=== PATIENT | female | born 1985 | race Caucasian/White ===

== ENCOUNTER 2018-06-26 22:45 | Emergency (ER) | payer SELFPAY ==
[2018-06-26] MEDS ORDERED: NA CHLORIDE 0.9% 1,000 ML ONE (23:32)
[2018-06-26 23:48] LABS: Absolute Lymphocytes (CBC) 1.2 K/uL (0.7-4.9); Absolute Monocytes 0.5 K/uL (0.1-1.3); Absolute Neutrophil 7.1 K/uL (1.8-8.0); Basophils % 0.6 % (0-1.3); Eosinophils % 1.5 % (0-4.4); Hematocrit 31.2 % (36.0-45.0); Lymphocytes % 13.3 % (15.3-44.8); MCH 35.4 pg (27.0-35.0); MCV 96.5 fL (80-100); MPV 8.3 fL (7.6-11.3); Monocytes % 5.9 % (3.3-12.3); RBC Red Blood Cell Count 3.23 M/uL (3.86-4.86)
[2018-06-27 00:01] LABS: Potassium 3.8 mmol/L (3.5-5.1)
[2018-06-27 00:27] LABS: Urine Blood TRACE (NEG); Urine Glucose NEGATIVE (NEG); Urine Protein NEGATIVE (NEG)
--- NOTE | 2018-06-27 02:15 | EDPHYS ---
Physician Documentation [facility] Name: Gabby Moyer Age: 32 yrs Sex: Female : 1985 Arrival Date: 06/26/2018 Time: 22:48 Bed 7 Private MD: ED Physician Isidro Kent HPI: 06/26 23:35 This 32 yrs old Female presents to ER via Ambulatory with complaints of Post pkl Surgical Pain - Surgical Site Problem. 23:35 Patient had a tummy tuck surgery in [facility] ) 06/17/18. Day after surgery pkl patient said her skin around the incision wound in the lower abdomen started to turn black. Denies abdominal pain. Wants to know what is going on.. 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 - Social history:: Smoking status: Patient uses tobacco products, smokes one-half pack cigarettes per day. - Ebola Screening: : Patient negative for fever greater than or equal to 101.5 degrees Fahrenheit, and additional compatible Ebola Virus Disease symptoms. ROS: 23:35 Eyes: Negative for injury, pain, redness, and discharge, ENT: Negative for injury, pkl pain, and discharge, Neck: Negative for injury, pain, and swelling, Cardiovascular: Negative for chest pain, palpitations, and edema, Respiratory: Negative for shortness of breath, cough, wheezing, and pleuritic chest pain. 23:35 Abdomen/GI: Positive for ecchymosis around incision wound lower abdomen.. 23:35 Back: Negative for acute changes. 23:35 : Negative for urinary symptoms. 23:35 MS/extremity: Negative for acute changes. 23:35 Neuro: Negative for altered mental status. Exam: 23:35 Head/Face: Normocephalic, atraumatic. Eyes: Pupils equal round and reactive to light, pkl extra-ocular motions intact. Lids and lashes normal. Conjunctiva and sclera are non-icteric and not injected. Cornea within normal limits. Periorbital areas with no swelling, redness, or edema. ENT: Nares patent. No nasal discharge, no septal abnormalities noted. Tympanic membranes are normal and external auditory canals are clear. Oropharynx with no redness, swelling, or masses, exudates, or evidence of obstruction, uvula midline. Mucous membranes moist. Neck: Trachea midline, no thyromegaly or masses palpated, and no cervical lymphadenopathy. Supple, full range of motion without nuchal rigidity, or vertebral point tenderness. No Meningismus. Chest/axilla: Normal chest wall appearance and motion. Nontender with no deformity. No lesions are appreciated. Cardiovascular: Regular rate and rhythm with a normal S1 and S2. No gallops, murmurs, or rubs. Normal PMI, no JVD. No pulse deficits. Respiratory: Lungs have equal breath sounds bilaterally, clear to auscultation and percussion. No rales, rhonchi or wheezes noted. No increased work of breathing, no retractions or nasal flaring. 23:35 Abdomen/GI: Bowel sounds: normal, Palpation: abdomen is soft and non-tender, in all quadrants, ecchymosis around incision wound lower abdomen. 23:35 Back: Exam negative for acute changes. 23:35 : Exam negative for acute changes. 23:35 Musculoskeletal/extremity: Exam is negative for acute changes. 23:35 Neuro: Orientation: is normal, Mentation: is normal, Cranial nerves: grossly normal, Motor: is normal. Vital Signs: 23:23 BP 109 / 63; Pulse 88; Resp 16 S; Temp 98.4(O); Pulse Ox 97% on R/A; Weight 73.94 kg jd3 (R); Height 5 ft. 3 in. (160.02 cm) (R); Pain 0/10; 06/27 00:21 BP 96 / 70; Pulse 86; Resp 16 S; Pulse Ox 98% on R/A; jd3 01:31 BP 100 / 71; Pulse 78; Resp 16 S; Pulse Ox 98% on R/A; jd3 06/26 23:23 Body Mass Index 28.87 (73.94 kg, 160.02 cm) jd3 MDM: 06/26 23:01 Patient medically screened. pkl 06/27 02:10 Data reviewed: vital signs, nurses notes, lab test result(s), radiologic studies, CT pkl scan. ED course: Discussed lab. and CT Scan results with patient. Advised to see Surgeon that perform the surgery today. Patient understood instructions. 06/26 23:18 Order name: CBC with Diff; Complete Time: 00:08 pkl 06/26 23:18 Order name: Chem 7; Complete Time: 00:08 pkl 06/26 23:18 Order name: Sed Rate; Complete Time: 00:08 pkl 06/26 23:42 Order name: Urine Dipstick--Ancillary (enter results); Complete Time: 02:06 rg2 06/26 23:42 Order name: Urine --Ancillary (enter results); Complete Time: 02:06 rg2 06/27 01:34 Order name: Wound Culture jd3 06/27 00:09 Order name: CT Abd/Pelvis - W/Contrast pkl Administered Medications: 06/26 23:45 Drug: NS 0.9% 1000 ml Route: IV; Rate: 125 ml/hr; Site: right antecubital; tl1 06/27 02:24 Follow up: Response: No adverse reaction; IV Status: Order to discontinue infusion; IV jd3 Intake: 300ml Disposition: 06/27/18 02:15 Discharged to Home. Impression: Ecchymosis around incision wound lower abdomen. Possible skin necrosis. S/P Tummy Tuck. - Condition is Stable. - Medication Reconciliation Form, Thank You Letter, Antibiotic Education, Prescription Opioid Use form. - Follow up: Private Physician; When: Today; Reason: Re-evaluation by your physician. - Problem is new. - Symptoms are unchanged. Signatures: Dispatcher [employer] EDMS Isidro Kent MD MD pkl Chayo Alexander RN RN tl1 Tomasz Mendez RN RN jd3 Corrections: (The following items were deleted from the chart) 02:24 02:15 06/27/2018 02:15 Discharged to Home. Impression: Ecchymosis around incision wound jd3 lower abdomen. Possible skin necrosis. S/P Tummy Tuck. Condition is Stable. Forms are Medication Reconciliation Form, Thank You Letter, Antibiotic Education, Prescription Opioid Use. Follow up: Private Physician; When: Today; Reason: Re-evaluation by your physician. Problem is new. Symptoms are unchanged. pkl
--- NOTE | 2018-06-27 02:15 | ER ---
Nurse's Notes [facility] Name: Gabby Moyer Age: 32 yrs Sex: Female : 1985 Arrival Date: 06/26/2018 Time: 22:48 Bed 7 Private MD: Diagnosis: Ecchymosis around incision wound lower abdomen. Possible skin necrosis. S/P Tummy Tuck Presentation: 06/26 23:19 Presenting complaint: Patient states: "I had a tummy tuck in [place] 06-17-18. The day jd3 after the procedure my skin started to turn black around the sight of the surgery.". Transition of care: patient was not received from another setting of care. Onset of symptoms was June 18, 2018. Risk Assessment: Do you want to hurt yourself or someone else? Patient reports no desire to harm self or others. Initial Sepsis Screen: Does the patient meet any 2 criteria? No. Patient's initial sepsis screen is negative. Does the patient have a suspected source of infection? Yes: Skin breakdown/wound. Care prior to arrival: None. 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 - Social history:: Smoking status: Patient uses tobacco products, smokes one-half pack cigarettes per day. - Ebola Screening: : Patient negative for fever greater than or equal to 101.5 degrees Fahrenheit, and additional compatible Ebola Virus Disease symptoms. Screenin:29 Abuse screen: Denies threats or abuse. Nutritional screening: No deficits noted. jd3 Tuberculosis screening: No symptoms or risk factors identified. Fall Risk IV access (20 points). Ambulatory Aid- None/Bed Rest/Nurse Assist (0 pts). Gait- Normal/Bed Rest/Wheelchair (0 pts) Mental Status- Oriented to own ability (0 pts). Total Miranda Fall Scale indicates No Risk (0-24 pts). Assessment: 23:24 General: Appears in no apparent distress. comfortable, Behavior is calm, cooperative, jd3 appropriate for age. Pain: Denies pain. Neuro: Level of Consciousness is awake, alert, obeys commands, Oriented to person, place, time, situation, Appropriate for age. Cardiovascular: Capillary refill < 3 seconds Patient's skin is warm and dry. Respiratory: Airway is patent Respiratory effort is even, unlabored, Respiratory pattern is regular, symmetrical. GI: Abdomen is round non-distended, Bowel sounds present X 4 quads. Abd is soft and non tender X 4 quads. Patient currently denies constipation, diarrhea. : No signs and/or symptoms were reported regarding the genitourinary system. EENT: No signs and/or symptoms were reported regarding the EENT system. Derm: Skin is intact, Skin is dry, Skin is normal, Skin temperature is warm Wound noted Wound is surgical wound to bottom of abdomen from recent tummy tuck surgery. site is dark purple/black in color. no redness or swelling noted. Musculoskeletal: Circulation, motion, and sensation intact. Range of motion: intact in all extremities. 06/27 00:22 Reassessment: Patient appears in no apparent distress at this time. No changes from jd3 previously documented assessment. Patient and/or family updated on plan of care and expected duration. Pain level reassessed. Patient is alert, oriented x 3, equal unlabored respirations, skin warm/dry/pink. 01:33 Reassessment: Patient appears in no apparent distress at this time. Patient and/or jd3 family updated on plan of care and expected duration. Pain level reassessed. Patient is alert, oriented x 3, equal unlabored respirations, skin warm/dry/pink. 02:22 Reassessment: Patient appears in no apparent distress at this time. Patient and/or jd3 family updated on plan of care and expected duration. Pain level reassessed. Patient is alert, oriented x 3, equal unlabored respirations, skin warm/dry/pink. pt reported understanding of discharge instructions, even and steady gait upon discharge. Vital Signs: 06/26 23:23 BP 109 / 63; Pulse 88; Resp 16 S; Temp 98.4(O); Pulse Ox 97% on R/A; Weight 73.94 kg jd3 (R); Height 5 ft. 3 in. (160.02 cm) (R); Pain 0/10; 06/27 00:21 BP 96 / 70; Pulse 86; Resp 16 S; Pulse Ox 98% on R/A; jd3 01:31 BP 100 / 71; Pulse 78; Resp 16 S; Pulse Ox 98% on R/A; jd3 06/26 23:23 Body Mass Index 28.87 (73.94 kg, 160.02 cm) jd3 ED Course: 06/26 22:48 Patient arrived in ED. ds1 23:01 Isidro Kent MD is Attending Physician. pkl 23:19 Tomasz Mendez RN is Primary Nurse. jd3 23:22 Triage completed. jd3 23:24 Arm band placed on. jd3 23:29 Patient has correct armband on for positive identification. Placed in gown. Bed in low jd3 position. Call light in reach. Side rails up X 1. Adult w/ patient. 23:35 Inserted saline lock: 20 gauge in right antecubital area, using aseptic technique. cc Blood collected. 23:39 Initial lab(s) drawn, by me, sent to lab. cc 06/27 00:[address] via wheelchair. kw1 01:03 CT Abd/Pelvis - W/Contrast In Process Unspecified. EDMS 01:05 CT completed. Patient tolerated procedure well. Patient moved back from CT. kw1 02:21 No provider procedures requiring assistance completed. IV discontinued, intact, jd3 bleeding controlled, No redness/swelling at site. Pressure dressing applied. Administered Medications: 06/26 23:45 Drug: NS 0.9% 1000 ml Route: IV; Rate: 125 ml/hr; Site: right antecubital; tl1 08 02:24 Follow up: Response: No adverse reaction; IV Status: Order to discontinue infusion; IV jd3 Intake: 300ml Intake: 02:24 IV: 300ml; Total: 300ml. jd3 Outcome: 02:15 Discharge ordered by . pkl 02:22 Discharged to home ambulatory, with family. jd3 02:22 Condition: stable 02:22 Discharge instructions given to patient, Instructed on discharge instructions, follow up and referral plans. Demonstrated understanding of instructions, follow-up care. 02:24 Patient left the ED. jd3 Signatures: Dispatcher [employer] EDMS Isidro Kent MD MD pkl Sanford, Nayana ds1 Emily Nicholson Tonya RN RN tl1 Tomasz Mendez RN RN jd3 Isis Villavicencio kw1
--- NOTE | 2018-06-27 08:23 | RAD REPORT ---
EXAM DESCRIPTION: CTAbdomen Pelvis W Contrast - 06/27/2018 1:02 am CLINICAL HISTORY: Abdominal pain. ecchymosis lower abd. S/P tummy tuck COMPARISON: No comparisons TECHNIQUE: Biphasic CT imaging of the abdomen and pelvis was performed with 100 ml non-ionic IV cont rast. All CT scans are performed using dose optimization technique as appropriate and may include automated exposure control or mA/KV adjustment according to patient size. FINDINGS: The lung bases are clear.Small hiatal hernia. The liver, spleen, pancreas, adrenal glands and left kidney are within normal limits. Mild enhancemen t of the right-sided uroepithelium seen. No bowel obstruction, free air, free fluid or abscess. Moderate fat stranding and air bubbles are see n in the subcutaneous fat of the abdomen. Surgical drain is in place. No focal fluid collection is se en. The appendix is normal. No evidence of significant lymphadenopathy. No suspicious bony findings. IMPRESSION: Moderate subcutaneous fat stranding with small air bubbles and a drain in place in the l ower anterior abdominal wall fat. No abscess seen. Mild enhancement right-sided uro epithelium could indicate urinary tract infection. Clinical correlat ion is recommended.
== END 2018-06-27 02:24 | disposition home or self-care (01) ==
LOC: ER 22:45
DX: R58 Hemorrhage, not elsewhere classified (principal); G89.18 Other acute postprocedural pain; F17.220 Nicotine dependence, chewing tobacco, uncomplicated
CPT/HCPCS: 36415; 74177; 80048; 81003; 81025; 85025; 85652; 87070; 87205; 96360; 96361; 99284; J7030; Q9967

== ENCOUNTER 2022-01-30 13:08 | Inpatient (IN) | payer SELFPAY ==
--- OUTSIDE RECORDS SUMMARY | 2022-01-30 13:11 | XMS REPORT | Continuity of Care Document ---
:1985 Author Organization [facility] t Address [address] [place] [place] [address] Care Team Providers Name Role Phone Pcp, Does Not Have A Primary Care Physician Nikki VINCENT Attending Clinician Unavailable Nikki Hussein Attending Clinician ANENE Attending Clinician Unavailable Payers Payer Name Policy Type Policy Number Effective Date Expiration Date S [facility] [id number] 2015 00:00:00 Problems Condition Condition Condition Status Onset Resolution Last Treating Co mments Source Name Details Category Date Date Treatment Clinician Date No known No known Disease Unive rs active active ity of problems problems [facility] Allergies, Adverse Reactions, Alerts Allergy Allergy Status Severity Reaction(s) Onset Inactive Treating Comm ents Source Name Type Date Date Clinician NO KNOWN Drug Active Univers ALLERGIE Class ity of S [facility] Social History Social Habit Start Date Stop Date Quantity Comments Source Exposure to Not sure [facility] SARS-CoV-2 (event) Medica l Branch Sex Assigned At [birth year] [facility] 00:00:00 00:00:00 [facility] Smoking Status Start Date Stop Date Source Unknown if ever smoked [facility] Medications Ordered Filled Start Stop Current Ordering Indication Dosage Frequency Signature Comments Components Source Medication Medication Date Date Medication? Clinician (SIG) Name Name ondansetron 2021- No 4mg 4 mg, Slow Univers (ZOFRAN 3-11 -11 IV Push, ity of (PF)) 09:00: 07:59 ONCE, 1 [place] injection 4 00 :00 dose, On Medi angelic mg Fri Branch 01/30/22 at 0300, SHANTANU NaCl 0.9% 0 202- No 1000mL at 999 Uni vers (NS) bolus 01-30 mL/hr, ity of infusion 07:45: 09:00 1,000 mL, [place] as 1,000 mL 00 :00 IV Medical Infusion, Branch ONCE, 1 dose, On Wed01/30/22 at 0145, SHANTANU proMETHazin 2021-0 2021- No 25mg 25 mg, Uni vers e 01-30 Oral, ity of (PHENERGAN) 07:30: 06:21 [place] 25 [place] :00 dose, On Medica l mg Fri Branch 01/30/22 at 0130, SHANTANU proMETHazin 2021-0 2021- No 25mg 25 mg, IV Univers e 01-30 Piggyback, ity of (PHENERGAN) 07:00: 05:50 [place] in 00 :00 dose, On Medical NaCl 0.9% Fri Branch (NS) 50 mL 01/30/22 at IV 0100, SHANTANU piggyback ondansetron 2021-0 2021- No 8mg 8 mg, Slow Univers (ZOFRAN 01-30 IV Push, ity of (PF)) 06:00: 05:30 ONCE, 1 [place] injection 8 00 :00 dose, On Medi angelic mg Fri Branch 01/30/22 at 0000, SHANTANU NaCl 0.9% 0 202- No 1000mL at 999 Uni vers (NS) bolus 01-30 mL/hr, ity of infusion 06:00: 07:45 1,000 mL, [place] as 1,000 mL 00 :00 IV Medical Infusion, Branch ONCE, 1 dose, On 01/30/22 at 0000, SHANTANU proMETHazin 2022-0 Yes [id number] 25mg Take 1 Univers e 25 mg 3-11 tablet by ity of tablet 00:00: mouth [place] 00 every 6 Medical (six) Branch hours as needed for Nausea and Vomiting (N/V). proMETHazin 2022-0 Yes [id number] 25mg Insert 1 Univers e 25 mg 3-11 Suppositor [place]y of supp[place] 00:00[place] rectum Medical every 4 Branch (four) hours as needed for Nausea and Vomiting (N/V). dicyclomine Yes [id number] 10mg Take 1 Univers 10 mg 3-11 capsule by ity of capsule 00:00: mouth 4 [place] (four) Medical times Branch daily. Vital Signs Vital Name Observation Time Observation Value Comments Source Respiratory rate 2022-01-30 08:30:00 22 /min [facility] Systolic blood 2022-01-30 08:00:00 99 mm[Hg] [facility] Diastolic blood 2022-01-30 08:00:00 66 mm[Hg] [facility] Heart rate 2022-01-30 08:00:00 59 /min [facility] Oxygen saturation in 2022-01-30 06:08:00 96 /min [facility] Arterial blood by [facility] Pulse oximetry [place] Body temperature 2022-01-30 04:17:[address] [facility] Body height 2022-01-30 04:17:00 160 cm [facility] Body weight 2022-01-30 04:17:00 74.844 kg [facility] BMI 2022-01-30 04:17:00 29.23 kg/m2 [facility] Procedures Procedure Date / Time Performed Performing Clinician [facility] e POCT TEST 2022-01-30 05:43:00 Laci Vincent [facility] URINALYSIS 2022-01-30 05:41:00 Laci Vincent [facility] LIPASE 2022-01-30 05:31:00 Laci Vincent [facility] MAGNESIUM 2022-01-30 05:31:00 Laci Vincent [facility] COMP. METABOLIC PANEL 2022-01-30 05:31:00 Laci Vincent [facility] ([id number]) [facility] CBC WITH DIFF 2022-01-30 05:31:00 Laci Vincent [facility] NOTICE OF PRIVACY 2022-01-30 04:13:47 Doctor Unassigned, No [facility] PRACTICES Name [facility] CONSENT/REFUSAL FOR 2022-01-30 04:13:34 Doctor Unassigned, No Un [facility] DIAGNOSIS AND Name [facility] TREATMENT Plan of Care Planned Activity Planned Date Details Comments Source Encounters Start End Encounter Admission Attending Care Care Encounter Source Date/Time Date/Time Type Type Clinicians Facility Department ID 2018-07-14 Inpatient E [facility] [id number] 19:40:00 dakota duncan 2022-01-29 2022-01-30 Emergency X [facility] ERT [id number] Univers 22:26:00 03:03:[address] [facility] 2022-01-29 2022-01-30 Emergency [facility] [id number] Univers 22:26:00 03:03:00 Laci FRIEND [id number] i [facility] [id number] [facility] [id number] [place] [id number] Branch 2020-05-31 2020-05-31 [id number] Univers 07:00:00 07:00:[address] [facility] 2018-06-27 2018-06-27 [facility] [id number] 16:57:00 16:57:00 dakota duncan Results Test Description Test Time Test Comments Results Result Comments Source MAGNESIUM 2022-01-30 06:35:59 Test Item Value Reference Range Interpretation Comme nts MAGNESIUM (test code = 1939021137) 1.6 mg/dL 1.7-2.4 L Lab Interpretation (test code = 14530-9) [facility]20713[facility]2022-01-30 06:35:58 Test Item Value Reference Range Interpretation Comments NA (test code = 139 mmol/L 135-145 4960131202) K (test code = 3.8 mmol/L 3.5-5.0 4035072729) CL (test code = 103 mmol/L 98-108 0020554916) CO2 TOTAL (test code = 21 mmol/L 23-31 L 1469488715) AGAP (test code = 2-16 8796293398) BUN (test code = 10 mg/dL 7-23 2386705347) GLUCOSE (test code = 116 mg/dL 70-110 H 0064677586) CREATININE (test code = 0.78 mg/dL 0.50-1.04 0042374098) TOTAL BILI (test code = 1.4 mg/dL 0.1-1.1 H 2668093330) CALCIUM (test code = 9.2 mg/dL 8.6-10.6 4026013178) T PROTEIN (test code = 8.7 g/dL 6.3-8.2 H 8148581297) ALBUMIN (test code = 5.1 g/dL 3.5-5.0 H 3373088181) ALK PHOS (test code = 70 U/L 34-122 6675675728) ALTv (test code = 36 U/L 5-35 H 2-6) AST(SGOT) (test code = 52 U/L 13-40 H 5408952912) eGFR (test code = mL/min/1.73m2 4029694726) MARY (test code = MARY) Association of Glomerular Filtration Rate (GFR) and Staging of Kidney Disease* + --+ --+ ------+| GFR (mL/min/1.73 m2) ?| With Kidney Damage ?| ?Without Kidney Damage+ --------+ --------+ +| ?>90 ?| ?Stage one ?| ? Normal ?+ ---+ ---+ -------+| ?60-89 ?| ?Stage two ?| ? Decreased GFR ? + --+ --+ ------+| ?30-59 ?| ?Stage three ?| ? Stage three ? + --+ --+ ------+| ?15-29 ?| ?Stage four ? | ? Stage four ?+ ---+ ---+ -------+| ?<15 (or dialysis) ? ?| ?Stage five ? | ? Stage five ?+ ---+ ---+ -------+ *Each stage assumes the associated GFR level has been in effect for at least three months. ?Stages 1 to 5, with or without kidney disease, indicate chronic kidney disease. Notes: Determination of stages one and two (with eGFR >59mL/min/1.73 m2) requires estimation of kidney damage for at least three months as defined by structural or functional abnormalities of the kidney, manifested by either:Pathological abnormalities or Markers of kidney damage (including abnormalities in the composition of the blood or urine or abnormalities in imaging tests). Lab Interpretation Abnormal (test code = 91815-9) [facility] 06:35:38 Test Item Value Reference Range Interpretation Comments LIPASE (test code = 2890696250) 118 U/L 0-220 Lab Interpretation (test code = Normal 95148-2) [facility] WITH [id number] 06:17:38 Test Item Value Reference Range Interpretation Comments WBC (test code = See_Comment [Automated 6690-2) message] The sy stem which generated this result transmitted reference range : 4.30 - 11.10 10*3/?L. The reference range was not used to interpret this result as normal/abnormal . RBC (test code = See_Comment [Automated 789-8) message] The sy stem which generated this result transmitted reference range : 3.93 - 5.25 10*6/?L. The reference range was not used to interpret this result as normal/abnormal . HGB (test code = 14.4 g/dL 11.6-15.0 718-7) HCT (test code = 38.8 % 35.7-45.2 4544-3) MCV (test code = 94.9 fL 80.6-95.5 787-2) MCH (test code = 35.2 pg 25.9-32.8 H 785-6) MCHC (test code = 37.1 g/dL 31.6-35.1 H 786-4) RDW-SD (test code = 39.2 fL 39.0-49.9 99944-8) RDW-CV (test code = 11.5 % 12.0-15.5 L 788-0) PLT (test code = See_Comment [Automated 777-3) message] The sy stem which generated this result transmitted reference range : 166 - 358 10*3/ ?L. The reference r milagros was not used to interpret this result as normal/abnormal . MPV (test code = 10.8 fL 9.5-12.9 12523-5) NRBC/100 WBC (test See_Comment [Automat ed code = 0609034337) message] The system which generated this result transmitted reference range : 0.0 - 10.0 /100 WBCs. The refer ence range was not u sed to interpret th is result as normal/abnormal . NRBC x10^3 (test code <0.01 See_Comment [Auto mated = 1990548626) message] The s ystem which generated this result transmitted reference range : 10*3/?L. The reference range was not used to interpret this result as normal/abnormal . GRAN MAT (NEUT) % 73.8 % (test code = 770-8) IMM GRAN % (test code 0.30 % = 5808501051) LYMPH % (test code = 18.5 % 736-9) MONO % (test code = 6.6 % 5905-5) EOS % (test code = 0.3 % 713-8) BASO % (test code = 0.5 % 706-2) GRAN MAT x10^3(ANC) 6.87 10*3/uL 1.88-7.09 (test code = 2693607803) IMM GRAN x10^3 (test 0.03 10*3/uL 0.00-0.06 code = 7399325966) LYMPH x10^3 (test code 1.73 10*3/uL 1.32-3.29 = 731-0) MONO x10^3 (test code 0.62 10*3/uL 0.33-0.92 = 742-7) EOS x10^3 (test code = 0.03 10*3/uL 0.03-0.39 711-2) BASO x10^3 (test code 0.05 10*3/uL 0.01-0.07 = 704-7) Lab Interpretation Abnormal (test code = 79187-9) [facility] [id number] 05:43:00 Test Item Value Reference Range Interpretation Comments POCT PREG (test code = 1605) Negative On board controls acceptable with Postive C Line (test code = 3574) POCT PREG LOT # (test code = 3575) [id number] POCT PREG TEST DATE (test 01-19-2023 code = 3576) Lab Interpretation (test code = Normal 70987-0) [facility]"
[2022-01-30 14:49] LABS: Absolute Lymphocytes (CBC) 0.9 K/uL (0.7-4.9); Hematocrit 39.1 % (36.0-45.0); Lymphocytes % 10.8 % (15.3-44.8); MPV 8.8 fL (7.6-11.3); RBC Red Blood Cell Count 3.93 M/uL (3.86-4.86)
[2022-01-30] MEDS ORDERED: ONDANSETRON 4 MG/2 ML VIAL ONE (14:52)
[2022-01-30] MEDS ORDERED: NA CHLORIDE 0.9% 1,000 ML ONE (14:52)
[2022-01-30] MEDS ORDERED: FAMOTIDINE 20 MG/2 ML VIAL IV ONE (14:52)
[2022-01-30 15:06] LABS: Bilirubin Direct 0.2 mg/dL (0-0.2); Bilirubin Total 0.9 mg/dL (0.2-1.0); Potassium 3.3 mmol/L (3.5-5.1); Protein, Total 8.4 g/dL (6.4-8.2)
[2022-01-30] MEDS ORDERED: NA CHLORIDE 0.9% 100 ML IV ONE (16:00)
[2022-01-30] MEDS ORDERED: METOCLOPRAMIDE 10 MG/2mL INJ ONE ×2 (16:00→16:07)
[2022-01-30] MEDS ORDERED: NA CHLORIDE 0.9% 50 ML ONE (16:05)
[2022-01-30] MEDS ORDERED: PROMETHAZINE INJ 25 MG/ML AMP ONE (18:14)
--- NOTE | 2022-01-30 18:39 | ER ---
Nurse's Notes [facility] Name: Gabby Moyer Age: 36 yrs Sex: Female : 1985 Arrival Date: 01/30/2022 Time: 13:10 Bed 26 Private MD: Diagnosis: Cyclical vomiting, intractable Presentation: 01/30 13:15 Chief complaint: Patient states: she has been experiencing nausea and vomiting since ap3 01/25/2022 which has not resolved. Patient reports being evaluated at another facility last night where she received fluids and zofran. She reports the providers at the previous facility wanted to admit her, however she didn't want to stay because she was informed they didn't have any beds available at that time. She was given a prescription for Zofran, however she reports that she is not getting any relief due to being unable to keep it down. Coronavirus screen: At this time, the client does not indicate any symptoms associated with coronavirus-19. Ebola Screen: No symptoms or risks identified at this time. Initial Sepsis Screen: Does the patient meet any 2 criteria? No. Patient's initial sepsis screen is negative. Does the patient have a suspected source of infection? No. Patient's initial sepsis screen is negative. Risk Assessment: Do you want to hurt yourself or someone else? Patient reports no desire to harm self or others. Onset of symptoms was January 25, 2022. 13:15 Method Of Arrival: Ambulatory ap3 13:15 Acuity: SAMIRA 3 ap3 Triage Assessment: 13:19 General: Appears uncomfortable, Behavior is calm, cooperative. General: Reports fatigue ap3 for. Pain: Denies pain. Neuro: Level of Consciousness is awake, alert, obeys commands. Respiratory: Airway is patent Respiratory effort is even, unlabored. GI: Reports diarrhea, intolerance of fluids, intolerance of food, nausea, vomiting. 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 - Social history:: Smoking status: Patient/guardian denies using tobacco, Patient uses alcohol, occasionally. Screenin:19 Abuse screen: Denies threats or abuse. Nutritional screening: Has had N/V for 3 or more ap3 days. Tuberculosis screening: No symptoms or risk factors identified. Fall Risk None identified. No fall in past 12 months (0 pts). Assessment: 14:20 General: Appears ill, Behavior is cooperative, appropriate for age. Neuro: No deficits ll1 noted. Cardiovascular: No deficits noted. Respiratory: No deficits noted. GI: Abdomen is flat, Reports nausea, vomiting. 15:20 Reassessment: No changes from previously documented assessment. Patient and/or family ll1 updated on plan of care and expected duration. Pain level reassessed. Patient is alert, oriented x 3, equal unlabored respirations, skin warm/dry/pink. 16:10 Reassessment: No changes from previously documented assessment. Patient and/or family ll1 updated on plan of care and expected duration. Pain level reassessed. Patient is alert, oriented x 3, equal unlabored respirations, skin warm/dry/pink. 17:00 Reassessment: No changes from previously documented assessment. Patient and/or family ll1 updated on plan of care and expected duration. Pain level reassessed. Patient is alert, oriented x 3, equal unlabored respirations, skin warm/dry/pink. 18:00 Reassessment: No changes from previously documented assessment. Patient and/or family ll1 updated on plan of care and expected duration. Pain level reassessed. Patient is alert, oriented x 3, equal unlabored respirations, skin warm/dry/pink. 20:13 Reassessment: Patient appears in no apparent distress at this time. Patient and/or lg3 family updated on plan of care and expected duration. Pain level reassessed. Patient is alert, oriented x 3, equal unlabored respirations, skin warm/dry/pink. pt quietly resting at this time. 22:00 General: Reports nausea with no active vomiting that has not stopped during the lg3 duration of her visit. notified MD. Vital Signs: 13:15 BP 125 / 78; Pulse 73; Resp 17; Temp 98.2; Pulse Ox 100% ; Weight 74.84 kg; Height 5 ap3 ft. 3 in. (160.02 cm); 19:32 BP 132 / 78; Pulse 74; Resp 17; Pulse Ox 100% on R/A; lg3 21:54 BP 130 / 76; Pulse 76; Resp 16 S; Pulse Ox 100% on R/A; lg3 13:15 Body Mass Index 29.23 (74.84 kg, 160.02 cm) ap3 ED Course: 13:10 Patient arrived in ED. ds1 13:18 Triage completed. ap3 13:20 Arm band placed on right wrist. ap3 13:22 Reynold Mccormack, RN is Primary Nurse. ll1 13:34 Dinesh Calvin MD is Attending Physician. kdr 14:28 Labs ordered per protocol. eh3 14:29 Inserted saline lock: 20 gauge in left antecubital area, using aseptic technique. Blood eh3 collected. 16:10 Patient has correct armband on for positive identification. Bed in low position. Call ll1 light in reach. Side rails up X 1. Cardiac monitoring not applicable on this patient. 18:38 Reagan Jones is Hospitalizing Provider. kdr 18:41 CT Abd/Pelvis - IV Contrast Only In Process Unspecified. EDMS Administered Medications: 14:55 Drug: Zofran (Ondansetron) 4 mg Route: IVP; Site: left antecubital; ll1 16:08 Follow up: Response: No adverse reaction ll1 14:56 Drug: NS 0.9% 1000 ml Route: IV; Rate: 1 bolus; Site: left antecubital; ll1 16:08 Follow up: Response: No adverse reaction; IV Status: Completed infusion; IV Intake: ll1 1000ml 14:56 Drug: Pepcid (famotidine) 20 mg Route: IVP; Site: left antecubital; ll1 16:08 Follow up: Response: No adverse reaction ll1 16:08 Drug: Reglan (metoCLOPramide) 10 mg Route: IVP; Site: left antecubital; ll1 16:50 Follow up: Response: No adverse reaction ll1 18:19 Drug: Phenergan (promethazine) 12.5 mg Route: IVP; Site: left antecubital; ll1 19:28 Follow up: Response: No adverse reaction ll1 Intake: 16:08 IV: 1000ml; Total: 1000ml. ll1 Outcome: 18:38 Decision to Hospitalize by Provider. kdr 01/31 19:21 Admitted to accompanied by tech, via stretcher, with chart, Report called to adin Garcia RN Condition: stable Instructed on the need for admit. 20:55 Patient left the ED. tk1 Signatures: Dispatcher [employer] Dinesh Moore MD MD kdr Sanford, Demi ds1 Brigida Tristan RN RN ap3 Angela Alonso RN RN lg3 Reynold Mccormack RN RN ll1 Jenelle Orosco tk1 Cassandra Michael [facility] Corrections: (The following items were deleted from the chart) 01/30 20:13 19:29 Reassessment: Patient appears in no apparent distress at this time. Patient lg3 and/or family updated on plan of care and expected duration. Pain level reassessed. Patient is alert, oriented x 3, equal unlabored respirations, skin warm/dry/pink. pt quietly resting at this time. ll1
--- NOTE | 2022-01-30 18:39 | EDPHYS ---
Physician Documentation [facility] Name: Gabby Moyer Age: 36 yrs Sex: Female : 1985 Arrival Date: 01/30/2022 Time: 13:10 Bed 26 Private MD: ED Physician Dinesh Calvin HPI: 01/30 18:39 This 36 yrs old Female presents to ER via Ambulatory with complaints of Nausea/vomiting.kdr 18:39 The patient presents to the emergency department with nausea, that is mild, that is kdr moderate, vomiting, that is intermittent, diarrhea, that is intermittent, abdominal pain, of the abdomen diffusely. Onset: The symptoms/episode began/occurred acutely, January 25. Possible causes: unknown. The symptoms are aggravated by food , The symptoms are alleviated by nothing. Associated signs and symptoms: Pertinent positives: abdominal pain, diarrhea, nausea, vomiting. Severity of symptoms: At their worst the symptoms were mild moderate just prior to arrival, in the emergency department the symptoms are unchanged. The patient has not experienced similar symptoms in the past. The patient has been recently seen by a physician: yesterday. Patient has had intractable vomiting since January 25. Patient was evaluated at [facility] last night. She received fluids and Zofran and was subsequently discharged. She indicated that there was some desire to admit her last night however she claims that because they had no beds, they discharged her. She was given a prescription for Zofran however she has continued to vomit despite this medication.. 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 - Social history:: Smoking status: Patient/guardian denies using tobacco, Patient uses alcohol, occasionally. ROS: 18:39 Constitutional: Negative for fever, chills, and weight loss, Eyes: Negative for injury, kdr pain, redness, and discharge, Neck: Negative for injury, pain, and swelling, Cardiovascular: Negative for chest pain, palpitations, and edema, Respiratory: Negative for shortness of breath, cough, wheezing, and pleuritic chest pain, Back: Negative for injury and pain, : Negative for injury, bleeding, discharge, and swelling, MS/Extremity: Negative for injury and deformity, Skin: Negative for injury, rash, and discoloration, Neuro: Negative for headache, weakness, numbness, tingling, and seizure activity. Psych: Negative for depression, anxiety, suicide ideation, homicidal ideation, and hallucinations, Allergy/Immunology: Negative for hives, rash, and allergies, Endocrine: Negative for neck swelling, polydipsia, polyuria, polyphagia, and marked weight changes, Hematologic/Lymphatic: Negative for swollen nodes, abnormal bleeding, and unusual bruising. 18:39 Abdomen/GI: Positive for abdominal pain, nausea, vomiting, and diarrhea, Negative for constipation, abdominal distension, anorexia, dysphagia, hematemesis, black/tarry stool, rectal pain, rectal bleeding. Exam: 18:39 Constitutional: This is a well developed, well nourished patient who is awake, alert, kdr and in no acute distress. Head/Face: Normocephalic, atraumatic. Eyes: Pupils equal round and reactive to light, extra-ocular motions intact. Lids and lashes normal. Conjunctiva and sclera are non-icteric and not injected. Cornea within normal limits. Periorbital areas with no swelling, redness, or edema. Neck: Trachea midline, no thyromegaly or masses palpated, and no cervical lymphadenopathy. Supple, full range of motion without nuchal rigidity, or vertebral point tenderness. No Meningismus. Chest/axilla: Normal chest wall appearance and motion. Nontender with no deformity. No lesions are appreciated. Cardiovascular: Regular rate and rhythm with a normal S1 and S2. No gallops, murmurs, or rubs. Normal PMI, no JVD. No pulse deficits. Respiratory: Lungs have equal breath sounds bilaterally, clear to auscultation and percussion. No rales, rhonchi or wheezes noted. No increased work of breathing, no retractions or nasal flaring. Back: No spinal tenderness. No costovertebral tenderness. Full range of motion. Skin: Warm, dry with normal turgor. Normal color with no rashes, no lesions, and no evidence of cellulitis. MS/ Extremity: Pulses equal, no cyanosis. Neurovascular intact. Full, normal range of motion. Neuro: Awake and alert, GCS 15, oriented to person, place, time, and situation. Cranial nerves II-XII grossly intact. Motor strength 5/5 in all extremities. Sensory grossly intact. Cerebellar exam normal. Normal gait. Psych: Awake, alert, with orientation to person, place and time. Behavior, mood, and affect are within normal limits. 18:39 Abdomen/GI: Inspection: abdomen appears normal, Bowel sounds: active, diminished, in all quadrants, Palpation: soft, mild abdominal tenderness, in all quadrants. Vital Signs: 13:15 BP 125 / 78; Pulse 73; Resp 17; Temp 98.2; Pulse Ox 100% ; Weight 74.84 kg; Height 5 ap3 ft. 3 in. (160.02 cm); 19:32 BP 132 / 78; Pulse 74; Resp 17; Pulse Ox 100% on R/A; lg3 21:54 BP 130 / 76; Pulse 76; Resp 16 S; Pulse Ox 100% on R/A; lg3 13:15 Body Mass Index 29.23 (74.84 kg, 160.02 cm) ap3 MDM: 18:38 Patient medically screened. kdr 18:39 Data reviewed: vital signs, nurses notes, lab test result(s), radiologic studies. kdr Counseling: I had a detailed discussion with the patient and/or guardian regarding: the historical points, exam findings, and any diagnostic results supporting the discharge/admit diagnosis, lab results, radiology results. 01/30 14:14 Order name: Basic Metabolic Panel; Complete Time: 15:58 [facility] 01/30 14:14 Order name: CBC with Diff; Complete Time: 15:58 [facility] 01/30 14:14 Order name: Hepatic Function; Complete Time: 15:58 [facility] 01/30 14:14 Order name: Lipase; Complete Time: 15:58 [facility] 01/30 19:32 Order name: COVID-19/FLU A+B (Document "Date of Onset" if Symptomatic) bb 01/31 04:08 Order name: CBC with Automated Diff [facility] 01/30 15:57 Order name: CT Abd/Pelvis - IV Contrast Only; Complete Time: 19:00 kdr 01/31 04:25 Order name: Comprehensive Metabolic Panel [facility] 01/31 04:25 Order name: Magnesium [facility] 01/31 11:19 Order name: Urinalysis [facility] 01/31 11:37 Order name: Urine Microscopic Only [facility] 01/31 18:50 Order name: Test, Urine [facility] 01/30 14:14 Order name: IV Saline Lock; Complete Time: 14:19 [facility] 01/30 14:14 Order name: Labs collected and sent; Complete Time: 14:19 ll1 Administered Medications: 14:55 Drug: Zofran (Ondansetron) 4 mg Route: IVP; Site: left antecubital; 1 16:08 Follow up: Response: No adverse reaction 1 14:56 Drug: NS 0.9% 1000 ml Route: IV; Rate: 1 bolus; Site: left antecubital; ll1 16:08 Follow up: Response: No adverse reaction; IV Status: Completed infusion; IV Intake: 1 1000ml 14:56 Drug: Pepcid (famotidine) 20 mg Route: IVP; Site: left antecubital; ll1 16:08 Follow up: Response: No adverse reaction 1 16:08 Drug: Reglan (metoCLOPramide) 10 mg Route: IVP; Site: left antecubital; ll1 16:50 Follow up: Response: No adverse reaction 1 18:19 Drug: Phenergan (promethazine) 12.5 mg Route: IVP; Site: left antecubital; 1 19:28 Follow up: Response: No adverse reaction ll1 Disposition Summary: 01/30/22 18:38 Hospitalization Ordered Hospitalization Status: Observation kdr Provider: Reagan Jones Condition: Fair kdr Problem: an ongoing problem kdr Symptoms: are unchanged kdr Bed/Room Type: Standard kdr Location: Telemetry/MedSurg (Inpatient)(01/31/22 19:00) Room Assignment: [facility](01/31/22 19:00) Diagnosis - Cyclical vomiting, intractable kdr Forms: - Medication Reconciliation Form kdr - SBAR form kdr Signatures: Dispatcher [employer] [facility] Sherrill Bland RN RN Dinesh Calvin MD MD kdr Martinez, Eric em1 Brigida Tristan RN RN ap3 Reynold Mccormack RN RN ll1 Eun Shrestha PA PA sb3 Corrections: (The following items were deleted from the chart) 19:30 18:38 Telemetry/MedSurg (observation) kdr 19:30 18:38 kdr mw 01/31 19:00 01/30 19:30 BR ER [facility] mw mw 01/31 19:00 01/30 19:30 ERHOLD- mw mw
--- NOTE | 2022-01-30 18:56 | RAD REPORT ---
EXAM DESCRIPTION: CT - Abdomen Pelvis W Contrast - 01/30/2022 6:41 pm CLINICAL HISTORY: Abdominal pain COMPARISON: 2018 TECHNIQUE: Computed axial tomography of the abdomen pelvis was obtained. 100 cc Isovue-300 was admin istered intravenously. Oral contrast was not requested which limits evaluation of bowel. All CT scans are performed using dose optimization technique as appropriate and may include automated exposure control or mA/KV adjustment according to patient size. FINDINGS: Fatty liver The Spleen, pancreas, adrenal and kidneys appear unremarkable. There is no evidence of diverticulitis. A normal appendix Prominent follicles within the ovaries. No significant free fluid IMPRESSION: No acute abnormality is displayed.
--- NOTE | 2022-01-30 20:10 | P.HP ---
Certification for Inpatient Patient admitted to: Observation With expected LOS: <2 Midnights Patient will require the following post-hospital care: None Practitioner: I am a practitioner with admitting privileges, knowledge of patient current condition, hospital course, and medical plan of care. Services: Services provided to patient in accordance with Admission requirements found in Title 42 Section 412.3 of the Code of Federal Regulations Patient History Date of Service: 01/30/22 Primary Care Provider: None Reason for admission: Intractable N/V History of Present Illness: Patient is a 36-year-old female with no medical problems who presented to the ED with a 5-day history of intractable nausea, vomiting and occasional diarrhea. Patient states she ate food from a fair on Wednesday and started feeling sick on Wednesday. She has not been able to hold anything down. She went to the [place] ER yesterday and was discharged with Phenergan which she could also not keep down. In the ED labs remarkable for sodium 146, potassium 3.3, chloride 114. CT abdomen pelvis negative. Vital signs stable. She was given 1 L fluid, Zofran, Pepcid, Reglan, and Phenergan in the ED. States Phenergan is helping the most. ED provider wishes to admit patient for observation for intractable nausea and vomiting treatment and IV fluid hydration. 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 - Family History Family History: Reviewed- Non-Contributory - Social History Smoking Status: Never smoker Alcohol use: Yes CD- Drugs: No Caffeine use: Yes Place of Residence: Home Review of Systems General: Weakness Gastrointestinal: Nausea, Vomiting, Abdominal Pain (Abdominal cramping) Physical Examination - Physical Exam General: Alert, In no apparent distress HEENT: Atraumatic, PERRLA, Other (Dry mucous membranes), EOMI, Sclerae nonicteric Neck: Supple, 2+ carotid pulse no bruit, No LAD, Without JVD or thyroid ab normality Respiratory: Clear to auscultation bilaterally, Normal air movement Cardiovascular: Regular rate/rhythm, Normal S1 S2 Gastrointestinal: Hypoactive, No tenderness Musculoskeletal: No tenderness Integumentary: No rashes Neurological: Normal speech, Normal strength at 5/5 x4 extr, Normal tone, Normal affect - Studies Laboratory Data (last 24 hrs) 01/30/22 14:32: WBC 8.40, Hgb 14.1, Hct 39.1, Plt Count 290 01/30/22 14:32: Sodium 146 H, Potassium 3.3 L, BUN 10, Creatinine 0.99, Glucose 113 H, Total Bilirubin 0.9, AST 18, ALT 37, Alkaline Phosphatase 63, Lipase 108 Assessment and Plan - Problems (Diagnosis) (1) Intractable nausea and vomiting Current Visit: Yes Status: Acute (2) Hypokalemia due to excessive gastrointestinal loss of potassium Current Visit: Yes Status: Acute - Plan - sodium was slightly elevated at 146 and potassium was low at 3.3. Will continue IV hydration with lactated Ringer's and repeat CMP in the morning. -Phenergan IV as needed nausea. -We will keep patient n.p.o. at this time with ice chips allowed for bowel rest. Will advance to clear liquids as tolerated DVT PPx: Lovenox Code: Full Discharge Plan: Home Plan to discharge in: 24 Hours - Advance Directives Does patient have a Living Will: No Does patient have a Durable POA for Healthcare: No - Code Status/Comfort Care Code Status Assessed: Yes (Full) Critical Care: No Time Spent Managing Pts Care (In Minutes): 70
[2022-01-30] MEDS: Ringers Lactate 1,000 ML IV SCH (22:58)
[2022-01-30] MEDS ORDERED: DIPHENHYDRAMINE 50 MG/ML VIAL IV PRN (22:58)
[2022-01-30] MEDS ORDERED: ACETAMINOPHEN 500 MG TAB PO PRN (22:58)
[2022-01-30] MEDS ORDERED: DIPHENHYDRAMINE 50 MG/ML VIAL ONE (23:20)
[2022-01-31 01:53] LABS: SARS-COV-2 RT PCR NEGATIVE (NEGATIVE)
[2022-01-31] MEDS ORDERED: LORazepam 2 MG/ML VIAL IV ONE (02:44)
[2022-01-31 04:06] LABS: Absolute Lymphocytes (CBC) 1.1 K/uL (0.7-4.9); Hematocrit 36.2 % (36.0-45.0); MPV 9.1 fL (7.6-11.3); RBC Red Blood Cell Count 3.62 M/uL (3.86-4.86)
[2022-01-31 04:24] LABS: Albumin 3.6 g/dL (3.4-5.0); Bilirubin Total 0.7 mg/dL (0.2-1.0); Magnesium 1.9 mg/dL (1.8-2.4); Potassium 3.1 mmol/L (3.5-5.1); Protein, Total 7.3 g/dL (6.4-8.2)
[2022-01-31] MEDS: Ringers Lactate 1,000 ML IV SCH ×2 (08:58→18:58)
[2022-01-31] MEDS: ENOXAPARIN 40 MG/0.4 ML SQ SCH (09:00)
[2022-01-31] MEDS ORDERED: INFLUENZA VACCINE (for 6+ mo) 0.5 ML DOSE IMVAC ONE (09:00)
[2022-01-31] MEDS ORDERED: ENOXAPARIN 40 MG/0.4 ML SQ ONE (10:46)
[2022-01-31] MEDS ORDERED: D5LR 0 ML IV ONE (10:47)
[2022-01-31] MEDS ORDERED: PROMETHAZINE INJ 25 MG/ML AMP ONE (10:49)
[2022-01-31] MEDS: PROMETHAZINE INJ 25 MG/ML AMP IV PRN ×3 (10:51→21:55)
[2022-01-31] MEDS ORDERED: Ringers Lactate 1,000 ML IV ONE (10:53)
[2022-01-31 11:17] LABS: Urine Appearance CLEAR (Clear); Urine Bilirubin NEGATIVE (Negative); Urine Blood NEGATIVE (Negative); Urine Color YELLOW (Yellow); Urine Glucose NEGATIVE (Negative); Urine Protein TRACE (Negative); Urine Specific Gravity >=1.030 (1.005-1.030)
[2022-01-31 11:18] LABS: Urine Microscopic Reflex ORDER UMIC
[2022-01-31 11:37] LABS: Urine Bacteria <20 /HPF (<20); Urine Mucus 2+ /HPF (NONE SEEN); Urine RBC <5 /HPF (NONE SEEN)
--- NOTE | 2022-01-31 14:23 | P.DS ---
Admission Date: 01/31/22 Discharge Date: 02/02/22 Primary Care Provider: None Disposition: ROUTINE DISCHARGE Discharge Condition: FAIR Reason for Admission: Intractable N/V - Problems (1) Acute infective gastroenteritis Current Visit: Yes Status: Acute (2) Intractable nausea and vomiting Current Visit: Yes Status: Acute Brief History of Present Illness: Patient is a 36-year-old female with no medical problems who presented to the ED with a 5-day history of intractable nausea, vomiting and occasional diarrhea. Patient states she ate food from a fair on Wednesday and started feeling sick on Wednesday. She has not been able to hold anything down. She went to the [place] ER yesterday and was discharged with Phenergan which she could also not keep down. In the ED labs remarkable for sodium 146, potassium 3.3, chloride 114. CT abdomen pelvis negative. Vital signs stable. She was given 1 L fluid, Zofran, Pepcid, Reglan, and Phenergan in the ED. States Phenergan is helping the most. She was hospitalized for further management. Hospital Course: Patient admitted to the medical floor and treated with supportive measures including IV hydration and IV antibiotics for infective gastroenteritis. Patient nausea was protracted during the hospital stay. The vomiting and diarrhea stopped with treatment. Today patient has tolerated diet advancement to soft diet, denies any abdominal pain. She has clinically improved and deemed stable for discharge. Symptoms likely related to infectious gastroenteritis. Patient is discharged with oral ciprofloxacin and Flagyl. Vital Signs/Physical Exam: Temp Pulse Resp BP Pulse Ox 97.2 F 45 L 20 126/79 100 01/31/22 08:00 01/31/22 08:00 01/31/22 08:00 01/31/22 04:00 01/31/22 08:00 General: Alert, In no apparent distress, Oriented x3 HEENT: Mucous membr. moist/pink Neck: JVD not distended Respiratory: Clear to auscultation bilaterally, Normal air movement Cardiovascular: No edema, Regular rate/rhythm, Normal S1 S2 Gastrointestinal: Normal bowel sounds, Soft and benign, Non-distended, No tenderness Musculoskeletal: No swelling Integumentary: No rashes, No erythema Neurological: Normal strength at 5/5 x4 extr Laboratory Data at Discharge: WBC 7.50 K/uL (4.3-10.9) 01/31/22 03:39 Hgb 12.7 g/dL (12.0-15.0) 01/31/22 03:39 Hct 36.2 % (36.0-45.0) 01/31/22 03:39 Plt Count 205 K/uL (152-406) D 01/31/22 03:39 Sodium 146 mmol/L (136-145) H 01/31/22 03:39 Potassium 3.1 mmol/L (3.5-5.1) L 01/31/22 03:39 BUN 9 mg/dL (7-18) 01/31/22 03:39 Creatinine 0.79 mg/dL (0.55-1.3) 01/31/22 03:39 Glucose 104 mg/dL (74-106) 01/31/22 03:39 Magnesium 1.9 mg/dL (1.8-2.4) 01/31/22 03:39 Total Bilirubin 0.7 mg/dL (0.2-1.0) 01/31/22 03:39 AST 18 U/L (15-37) 01/31/22 03:39 ALT 33 U/L (12-78) 01/31/22 03:39 Alkaline Phosphatase 52 U/L (45-117) 01/31/22 03:39 Lipase 108 U/L (73-393) 01/30/22 14:32 Home Medications: Ciprofloxacin HCl [Cipro 500 MG Tablet] 500 mg PO BID #8 tab 02/02/22 metroNIDAZOLE [Flagyl] 500 mg PO Q8H #12 tablet 02/02/22 New Medications: Ciprofloxacin HCl [Cipro 500 MG Tablet] 500 mg PO BID #8 tab metroNIDAZOLE [Flagyl] 500 mg PO Q8H #12 tablet Diet: Regular Activity: Ad claudia Followup: NONE,NONE [Primary Care Provider] - 1 Week Time spent managing pt's care (in minutes): 35
--- NOTE | 2022-01-31 18:05 | P.PN ---
Subjective Date of Service: 01/31/22 Primary Care Provider: None Chief Complaint: Intractable N/V Patient is still vomiting. Vomiting not related to meals. She denies any fever or diarrhea today. Physical Examination - Vital Signs Temperature: 97.3 F Blood Pressure: 126/88 Pulse: 55 Respirations: 20 Pulse Ox (%): 100 - Physical Exam General: Alert, In no apparent distress, Oriented x3 HEENT: Mucous membr. moist/pink, Sclerae nonicteric Neck: JVD not distended Respiratory: Clear to auscultation bilaterally, Normal air movement Cardiovascular: No edema, Regular rate/rhythm, Normal S1 S2 Gastrointestinal: Normal bowel sounds, Soft and benign, Non-distended, No tenderness Musculoskeletal: No swelling, No tenderness Integumentary: No rashes, No erythema, No cyanosis Neurological: Normal speech, Normal strength at 5/5 x4 extr - Studies Laboratory Data (last 24 hrs) 01/31/22 03:39: Sodium 146 H, Potassium 3.1 L, BUN 9, Creatinine 0.79, Glucose 104, Magnesium 1.9, Total Bilirubin 0.7, AST 18, ALT 33, Alkaline Phosphatase 52 01/31/22 03:39: WBC 7.50, Hgb 12.7, Hct 36.2, Plt Count 205 D Assessment And Plan - Current Problems (Diagnosis) (1) Acute infective gastroenteritis Current Visit: Yes Status: Acute (2) Intractable nausea and vomiting Current Visit: Yes Status: Acute - Plan Continue IV fluid Antiemetics Check test Clear liquid diet as tolerated. We will start antibiotics if test is negative. Monitor and replete electrolytes as needed.
[2022-01-31 18:49] LABS: Specific Gravity 1.025 (1.005-1.030)
[2022-02-01] MEDS ORDERED: METRONIDAZOLE 250mg IVPB 250 MG/50 ML BAG IV SCH (01:00)
[2022-02-01] MEDS: METRONIDAZOLE 500mg IVPB 500 MG/100 ML BAG IV SCH ×3 (01:24→17:39)
[2022-02-01] MEDS: Ringers Lactate 1,000 ML IV SCH ×2 (04:58→14:05)
[2022-02-01 05:32] LABS: Absolute Lymphocytes (CBC) 1.4 K/uL (0.7-4.9); Hematocrit 37.1 % (36.0-45.0); Lymphocytes % 15.2 % (15.3-44.8); MPV 9.3 fL (7.6-11.3); RBC Red Blood Cell Count 3.69 M/uL (3.86-4.86)
[2022-02-01 05:49] LABS: ALT/SGPT 68 U/L (12-78); AST/SGOT 67 U/L (15-37); Albumin 3.3 g/dL (3.4-5.0); Alkaline Phosphatase 52 U/L (45-117); BUN Blood Urea Nitrogen 11 mg/dL (7-18); Bicarbonate 23 mmol/L (21-32); Bilirubin Total 1.1 mg/dL (0.2-1.0); Glucose Level 95 mg/dL (74-106); Magnesium 1.9 mg/dL (1.8-2.4); Potassium 3.2 mmol/L (3.5-5.1); Protein, Total 6.9 g/dL (6.4-8.2); Sodium Level 141 mmol/L (136-145)
[2022-02-01] MEDS ORDERED: Ciprofloxacin 200mg IV 200 MG/100 ML IV.SOLN. IV SCH (09:00)
[2022-02-01] MEDS: Ciprofloxacin 200mg IV 200 MG/100 ML IV.SOLN. IV SCH ×2 (09:55→21:44)
[2022-02-01] MEDS: ENOXAPARIN 40 MG/0.4 ML SQ SCH (09:56)
[2022-02-01] MEDS: PROMETHAZINE INJ 25 MG/ML AMP IV PRN ×4 (09:56→21:45)
[2022-02-01] MEDS ORDERED: SODIUM CHLORIDE 0.9% 10ML INJ IV PRN (14:03)
--- NOTE | 2022-02-01 15:14 | P.PN ---
Subjective Date of Service: 02/01/22 Primary Care Provider: None Chief Complaint: Intractable N/V Patient reports persistent nausea. She stated the diarrhea has resolved. Physical Examination - Vital Signs Temperature: 98.0 F Blood Pressure: 123/74 Pulse: 54 Respirations: 18 Pulse Ox (%): 97 - Physical Exam General: Alert, In no apparent distress, Oriented x3 HEENT: Mucous membr. moist/pink Respiratory: Clear to auscultation bilaterally, Normal air movement Cardiovascular: No edema, Regular rate/rhythm, Normal S1 S2 Gastrointestinal: Normal bowel sounds, Soft and benign, Non-distended, No tenderness Musculoskeletal: No swelling Integumentary: No rashes, No cyanosis Neurological: Normal strength at 5/5 x4 extr Assessment And Plan - Current Problems (Diagnosis) (1) Acute infective gastroenteritis Current Visit: Yes Status: Acute (2) Intractable nausea and vomiting Current Visit: Yes Status: Acute - Plan Continue IV fluid Antiemetics test negative. Continue Cipro and Flagyl IV. Added Protonix for GERD. Diet as tolerated. Monitor and replete electrolytes as needed.
[2022-02-01] MEDS: PANTOPRAZOLE 40 MG INJ IVP SCH (21:44)
[2022-02-01] MEDS ORDERED: FAMOTIDINE 20 MG/2 ML VIAL IV PRN (22:38)
[2022-02-01 22:46] VITALS: BMI 43.9
[2022-02-02] MEDS: METRONIDAZOLE 500mg IVPB 500 MG/100 ML BAG IV SCH ×2 (01:53→08:16)
[2022-02-02] MEDS: PROMETHAZINE INJ 25 MG/ML AMP IV PRN ×2 (01:53→05:45)
[2022-02-02] MEDS: Ringers Lactate 1,000 ML IV SCH ×2 (04:42→10:58)
[2022-02-02] MEDS: PANTOPRAZOLE 40 MG INJ IVP SCH (08:15)
[2022-02-02] MEDS: Ciprofloxacin 200mg IV 200 MG/100 ML IV.SOLN. IV SCH (08:15)
[2022-02-02] MEDS: ENOXAPARIN 40 MG/0.4 ML SQ SCH (08:15)
[2022-02-02 09:45] VITALS: O2SAT 97
[2022-02-02 12:35] VITALS: BP 117/77; TEMP 98.9
== END 2022-02-02 14:35 | disposition home or self-care (01) | DRG 392 ==
LOC: ER 13:08 → ERHOLD 19:11 → OBSVTOIN 01-31 12:26 → 4TH 01-31 19:34
PROVIDERS: ADMIT Internal Medicine; ATTEND Internal Medicine
DX: A09 Infectious gastroenteritis and colitis, unspecified (principal); E87.6 Hypokalemia; Z20.822 Contact with and (suspected) exposure to COVID-19
CPT/HCPCS: 0240U; 36415; 74177; 80048; 80053; 80076; 81003; 81015; 81025; 83690; 83735; 85025; 96361; 96374; 96375; 99285; C9113; J0744; J1200; J1650; J2405; J2550; J2765; J7030; J7120; J7121; Q9967

== ENCOUNTER 2022-02-07 06:16 | Emergency (ER) | payer SELFPAY ==
--- OUTSIDE RECORDS SUMMARY | 2022-02-07 06:19 | XMS REPORT | Continuity of Care Document ---
:1985 Author Organization [facility] t Address [address] [place] [place] [address] Care Team Providers Name Role Phone Pcp, Does Not Have A Primary Care Physician Nikki VINCENT Attending Clinician Unavailable Nikki Hussein Attending Clinician ANENE Attending Clinician Unavailable Payers Payer Name Policy Type Policy Number Effective Date Expiration Date S corazon [facility] [id number] 2015 00:00:00 Problems Condition Condition Condition Status Onset Resolution Last Treating Co mments Source Name Details Category Date Date Treatment Clinician Date No known No known Disease Unive rs active active ity of problems problems [facility] Allergies, Adverse Reactions, Alerts Allergy Allergy Status Severity Reaction(s) Onset Inactive Treating Comm ents Source Name Type Date Date Clinician NO KNOWN Drug Active Univers ALLERGIE Class ity of S [facility] Social History Social Habit Start Date Stop Date Quantity Comments Source Exposure to Not sure [facility] SARS-CoV-2 (event) Medica l Branch Sex Assigned At [birth year] [facility] 00:00:00 00:00:00 [facility] Smoking Status Start Date Stop Date Source Unknown if ever smoked [facility] Medications Ordered Filled Start Stop Current Ordering Indication Dosage Frequency Signature Comments Components Source Medication Medication Date Date Medication? Clinician (SIG) Name Name ondansetron 2021- No 4mg 4 mg, Slow Univers (ZOFRAN 3-11 03-11 IV Push, ity of (PF)) 09:00: 07:59 [...] 01/30/22 at 0000, SHANTANU proMETHazin 2022-0 Yes [id number] 25mg Take 1 Univers e 25 mg 3-11 tablet by ity of tablet 00:00: mouth [place] 00 every 6 Medical (six) Branch hours as needed for Nausea and Vomiting (N/V). proMETHazin 2022-0 Yes [id number] 25mg Insert 1 Univers e 25 mg 3-11 Suppositor [place] of supp[place] rectum Medical every 4 Branch (four) hours as needed for Nausea and Vomiting (N/V). dicyclomine Yes [id number] 10mg Take 1 Univers 10 mg 3-11 capsule by ity of capsule 00:00: mouth 4 [place] (four) Medical times Branch daily. Vital Signs Vital Name Observation Time Observation Value Comments Source Respiratory rate 2022-01-30 08:30:00 22 /min [facility] Systolic blood 2022-01-30 08:00:00 99 mm[Hg] [facility] Diastolic blood 2022-01-30 08:00:00 66 mm[Hg] [facility] Heart rate 2022-01-30 08:00:00 59 /min [facility] Oxygen saturation in 2022-01-30 06:08:00 96 /min [facility] Arterial blood by [facility] Pulse oximetry [place] Body temperature 2022-01-30 04:17:00 36.33 Cherrie [facility] Body height 2022-01-30 04:17:00 160 cm [facility] Body weight 2022-01-30 04:17:00 74.844 kg [facility] BMI 2022-01-30 04:17:00 29.23 kg/m2 [facility] Procedures Procedure Date / Time Performed Performing Clinician [facility] e POCT TEST 2022-01-30 05:43:00 Laci Vincent [facility] URINALYSIS 2022-01-30 05:41:00 Laci Vincent [facility] LIPASE 2022-01-30 05:31:00 Laci Vincent [facility] MAGNESIUM 2022-01-30 05:31:00 Laci Vincent [facility] COMP. METABOLIC PANEL 2022-01-30 05:31:00 Laci Vincent [facility] ([id number]) [facility] CBC WITH DIFF 2022-01-30 05:31:00 Laci Vincent [facility] NOTICE OF PRIVACY 2022-01-30 04:13:47 Doctor Unassigned, No [facility] PRACTICES Name Medical Branch CONSENT/REFUSAL FOR 2022-01-30 04:13:34 Doctor Unassigned, No Un [facility] DIAGNOSIS AND Name Medical Branch TREATMENT Encounters Start End Encounter Admission Attending Care Care Encounter Source Date/Time Date/Time Type Type Clinicians Facility Department ID 2018-07-14 Inpatient E [facility] MED [id number] 19:40:00 dakota duncan 2022-01-29 2022-01-30 Emergency X [facility] ERT [id number] Univers 22:26:00 03:03:00 LACI flowers of [facility] 2022-01-29 2022-01-30 Emergency [facility] [id number] Univers 22:26:00 03:03:00 Laci FRIEND [id number] i esequiel [facility] [id number] [facility] [id number] [address] 2020-05-31 2020-05-31 Outpatient Nikki WOODRUFF [facility] [id number] Univers 07:00:00 07:00:[address] [facility] 2018-06-27 2018-06-27 Outpatient E [id number] 16:57:00 16:57:00 dakota Mercado l Results Test Description Test Time Test Comments Results Result Comments Source MAGNESIUM 2022-01-30 06:35:59 Test Item Value Reference Range Interpretation Comme nts MAGNESIUM (test code = 5474876152) 1.6 mg/dL 1.7-2.4 L Lab Interpretation (test code = 34404-5) [facility]normal [facility] ([id number])2022-01-30 06:35:58 Test Item Value Reference Range Interpretation Comments NA (test code = 139 mmol/L 135-145 2310801241) K (test code = 3.8 mmol/L 3.5-5.0 4978433887) CL (test code = 103 mmol/L 98-108 9770092193) CO2 TOTAL (test code = 21 mmol/L 23-31 L 5947465429) AGAP (test code = 2-16 0463652760) BUN (test code = 10 mg/dL 7-23 6278736813) GLUCOSE (test code = 116 mg/dL 70-110 H 1737938365) CREATININE (test code = 0.78 mg/dL 0.50-1.04 6968329061) TOTAL BILI (test code = 1.4 mg/dL 0.1-1.1 H 7486728378) CALCIUM (test code = 9.2 mg/dL 8.6-10.6 2330990730) T PROTEIN (test code = 8.7 g/dL 6.3-8.2 H 7531918351) ALBUMIN (test code = 5.1 g/dL 3.5-5.0 H 6393855991) ALK PHOS (test code = 70 U/L 34-122 9518433534) ALTv (test code = 36 U/L 5-35 H 1742-6) AST(SGOT) (test code = 52 U/L 13-40 H 2863631716) eGFR (test code = mL/min/1.73m2 2302220703) MARY (test code = MARY) Association of [...] tests). Lab Interpretation Abnormal (test code = 90671-9) [facility] 06:35:38 Test Item Value Reference Range Interpretation Comments LIPASE (test code = 3779663450) 118 U/L 0-220 Lab Interpretation (test code = Normal 31304-7) [facility] [id number] 06:17:38 Test Item Value Reference Range Interpretation [...] RDW-SD (test code = 39.2 fL 39.0-49.9 98953-2) RDW-CV (test code = 11.5 % 12.0-15.5 L 788-0) PLT (test code = See_Comment [Automated 777-3) message] The sy stem which generated this result transmitted reference range : 166 - 358 10*3/ ?L. The reference r milagros was not used to interpret this result as normal/abnormal . MPV (test code = 10.8 fL 9.5-12.9 95859-2) NRBC/100 WBC (test See_Comment [Automat ed code = 1657149063) message] The system which generated this result transmitted reference range : 0.0 - 10.0 /100 WBCs. The refer ence range was not u sed to interpret th is result as normal/abnormal . NRBC x10^3 (test code <0.01 See_Comment [Auto mated = 2085140387) message] The s ystem which generated this result transmitted reference range : 10*3/?L. The reference range was not used to interpret this result as normal/abnormal . GRAN MAT (NEUT) % 73.8 % (test code = 770-8) IMM GRAN % (test code 0.30 % = 7462621350) LYMPH % (test code = 18.5 % 736-9) MONO % (test code = 6.6 % 5905-5) EOS % (test code = 0.3 % 713-8) BASO % (test code = 0.5 % 706-2) GRAN MAT x10^3(ANC) 6.87 10*3/uL 1.88-7.09 (test code = 9354007491) IMM GRAN x10^3 (test 0.03 10*3/uL 0.00-0.06 code = 1319129858) LYMPH x10^3 (test code 1.73 10*3/uL 1.32-3.29 = 731-0) MONO x10^3 (test code 0.62 10*3/uL 0.33-0.92 = 742-7) EOS x10^3 (test code = 0.03 10*3/uL 0.03-0.39 711-2) BASO x10^3 (test code 0.05 10*3/uL 0.01-0.07 = 704-7) Lab Interpretation Abnormal (test code = 48787-1) [facility] [id number] 05:43:00 Test Item Value Reference Range Interpretation Comments POCT PREG (test code = 1605) Negative On board controls acceptable with Postive C Line (test code = 3574) POCT PREG LOT # (test code = 3575) [id number] POCT PREG TEST DATE (test 01-19-2023 code = 3576) Lab Interpretation (test code = Normal 41808-3) [facility]"
[2022-02-07] MEDS ORDERED: NA CHLORIDE 0.9% 1,000 ML ONE (06:45)
[2022-02-07] MEDS ORDERED: PROMETHAZINE INJ 25 MG/ML AMP ONE ×2 (06:45→07:42)
[2022-02-07 06:59] LABS: Absolute Lymphocytes (CBC) 1.2 K/uL (0.7-4.9); Hematocrit 39.7 % (36.0-45.0); Lymphocytes % 14.8 % (15.3-44.8); MPV 9.8 fL (7.6-11.3); RBC Red Blood Cell Count 4.08 M/uL (3.86-4.86)
[2022-02-07 07:14] LABS: Albumin 3.9 g/dL (3.4-5.0); Bilirubin Total 0.8 mg/dL (0.2-1.0); Potassium 3.5 mmol/L (3.5-5.1); Protein, Total 7.8 g/dL (6.4-8.2)
[2022-02-07] MEDS ORDERED: CIPROFLOXACIN 400mg IV 400 MG/200 ML BAG IV ONE (07:42)
[2022-02-07] MEDS ORDERED: METRONIDAZOLE 500mg IVPB 500 MG/100 ML BAG IV ONE (07:42)
[2022-02-07] MEDS ORDERED: NA CHLORIDE 0.9% 0 ML IV ONE (07:42)
--- NOTE | 2022-02-07 08:44 | ER ---
Nurse's Notes [facility] [place] Name: Gabby Moyer Age: 36 yrs Sex: Female : 1985 Arrival Date: 02/07/2022 Time: 06:20 Bed 7 Private MD: Diagnosis: Nausea with vomiting, unspecified Presentation: 02/07 06:38 Chief complaint: Patient states: patient was seen last week hospitalized Wednesday-Wednesday al4 for vomiting. patient has been vomiting all night. patient had a Rachael last night and started vomiting after. Coronavirus screen: Vaccine status: Patient reports receiving the 2nd dose of the covid vaccine. [employer]. Ebola Screen: No symptoms or risks identified at this time. Initial Sepsis Screen: Does the patient meet any 2 criteria? No. Patient's initial sepsis screen is negative. Does the patient have a suspected source of infection? No. Patient's initial sepsis screen is negative. Risk Assessment: Do you want to hurt yourself or someone else? Patient reports no desire to harm self or others. Onset of symptoms was February 06, 2022. 06:38 Method Of Arrival: Ambulatory al4 06:38 Acuity: SAMIRA 3 al4 Triage Assessment: 06:41 General: Appears in no apparent distress. uncomfortable, Behavior is calm, cooperative. al4 Neuro: Level of Consciousness is awake, alert, obeys commands, Oriented to person, place, time, situation. Cardiovascular: Capillary refill < 3 seconds Patient's skin is warm and dry. Respiratory: Airway is patent Respiratory effort is unlabored. GI: Reports nausea, vomiting. Musculoskeletal: Circulation, motion, and sensation intact. 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 - Social history:: Smoking status: Patient denies any tobacco usage or history of. Screenin:54 Abuse screen: Denies threats or abuse. Nutritional screening: No deficits noted. st1 Tuberculosis screening: No symptoms or risk factors identified. Fall Risk None identified. No fall in past 12 months (0 pts). No secondary diagnosis (0 pts). IV access (20 points). Ambulatory Aid- None/Bed Rest/Nurse Assist (0 pts). Gait- Normal/Bed Rest/Wheelchair (0 pts) Mental Status- Oriented to own ability (0 pts). Total Miranda Fall Scale indicates No Risk (0-24 pts). Assessment: 06:53 Pain: Complains of pain in abdomin. GI: Reports diarrhea, nausea, vomiting. st1 06:53 Reassessment: please see triage assessment. st1 Vital Signs: 06:38 BP 100 / 65; Pulse 74; Resp 22 S; Temp 97.5(O); Pulse Ox 100% on R/A; Weight 74.84 kg al4 (R); Height 5 ft. 3 in. (160.02 cm) (R); 07:48 BP 120 / 77; Pulse 71; Resp 18; Pulse Ox 98% on R/A; mckeon 06:38 Body Mass Index 29.23 (74.84 kg, 160.02 cm) al4 ED Course: 06:20 Patient arrived in ED. es 06:23 Glory Austin FNP-C [facility] kb 06:23 Dinesh Calvin MD is Attending Physician. kb 06:41 Triage completed. al4 06:41 Arm band placed on. al4 06:50 CBC with Diff Sent. st1 06:50 CMP Sent. st1 06:50 Lipase Sent. st1 06:51 Inserted saline lock: 20 gauge in right forearm, using aseptic technique. Blood st1 collected. 06:54 Patient has correct armband on for positive identification. Bed in low position. Call st1 light in reach. Side rails up X 1. Pulse ox on. NIBP on. Administered Medications: 06:50 Drug: NS 0.9% 1000 ml Route: IV; Rate: 1 bolus; Site: right forearm; st1 07:48 Follow up: IV Status: Completed infusion mckeon 06:50 Drug: Phenergan (promethazine) 12.5 mg Route: IVP; Site: right forearm; st1 07:47 Follow up: Response: No adverse reaction mckeon 07:48 Drug: Flagyl (metroNIDAZOLE) 500 mg Volume: 100 ml; Route: IVPB; Rate: 200 ml/hr; mckeon Infused Over: 30 mins; Site: right antecubital; 08:28 Follow up: IV Status: Completed infusion mckeon 08:27 Drug: Cipro (ciprofloxacin) 400 mg Volume: 200 ml; Route: IVPB; Infused Over: 60 mins; mckeon Site: right antecubital; 09:49 Not Given (Patient Refused): Phenergan (promethazine) 12.5 mg IVP once mckeon Outcome: 08:43 Discharge ordered by . kb 10:21 Patient left the ED. mckeon Signatures: Glory Austin, NUCLEAR WEAPONS SPECIALIST-C NUCLEAR WEAPONS SPECIALIST-Ckb Genesis Small Alexis al4 Au-Stager, Heather, RN RN mckeon Nicole Casillas RN RN st1
--- NOTE | 2022-02-07 08:44 | EDPHYS ---
Physician Documentation [facility] Name: Gabby Moyer Age: 36 yrs Sex: Female : 1985 Arrival Date: 02/07/2022 Time: 06:20 Bed 7 Private MD: ED Physician Dinesh Calvin HPI: 02/07 07:35 This 36 yrs old Female presents to ER via Ambulatory with complaints of Vomiting. kb 07:35 The patient presents to the emergency department with nausea, vomiting. Onset: The kb symptoms/episode began/occurred last night. Possible causes: bad food exposure. The symptoms are aggravated by food , The symptoms are alleviated by nothing. Associated signs and symptoms: Pertinent positives: nausea, vomiting, Pertinent negatives: abdominal pain, fever. Severity of symptoms: At their worst the symptoms were moderate in the emergency department the symptoms are unchanged. The patient has not experienced similar symptoms in the past. The patient has been recently been admitted at [facility], was discharged earlier this week. Pt reports nausea and vomiting that started last night after eating at [employer] and drinking a tylor. States she has been unable to tolerate anything by mouth. Pt was recently admitted for intractable vomiting and discharged on Wednesday with antibiotics. States she was feeling better so she stopped the antibiotics a couple of days ago. . 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 - Social history:: Smoking status: Patient denies any tobacco usage or history of. ROS: 07:31 Constitutional: Negative for fever, chills, and weight loss. kb 07:31 Abdomen/GI: Positive for nausea and vomiting, Negative for abdominal pain, diarrhea, constipation. 07:31 All other systems are negative. Exam: 07:34 Constitutional: This is a well developed, well nourished patient who is awake, alert, kb and in no acute distress. Head/Face: Normocephalic, atraumatic. ENT: Moist Mucous membranes Cardiovascular: Regular rate and rhythm with a normal S1 and S2. No gallops, murmurs, or rubs. No pulse deficits. Respiratory: Respirations even and unlabored. No increased work of breathing. Talking in full sentences Abdomen/GI: Soft, non-tender. No distention Skin: Warm, dry with normal turgor. Normal color. MS/ Extremity: Pulses equal, no cyanosis. Neurovascular intact. Full, normal range of motion. Neuro: Awake and alert, GCS 15, oriented to person, place, time, and situation. Moves all extremities. Normal gait. Psych: Awake, alert, with orientation to person, place and time. Behavior, mood, and affect are within normal limits. Vital Signs: 06:38 BP 100 / 65; Pulse 74; Resp 22 S; Temp 97.5(O); Pulse Ox 100% on R/A; Weight 74.84 kg al4 (R); Height 5 ft. 3 in. (160.02 cm) (R); 07:48 BP 120 / 77; Pulse 71; Resp 18; Pulse Ox 98% on R/A; mckeon 06:38 Body Mass Index 29.23 (74.84 kg, 160.02 cm) al4 MDM: 06:32 Patient medically screened. kb 07:34 Data reviewed: vital signs, nurses notes. Data interpreted: Pulse oximetry: on room air kb is 100 %. Interpretation: normal. Counseling: I had a detailed discussion with the patient and/or guardian regarding: the historical points, exam findings, and any diagnostic results supporting the discharge/admit diagnosis, lab results, the need for outpatient follow up, a family practitioner, to return to the emergency department if symptoms worsen or persist or if there are any questions or concerns that arise at home. 07:37 Data reviewed: old medical records, Labs and CT reviewed from previous admission. ED kb course: Pt states she is feeling better. Requests a dose of IV antibiotics prior to discharge and will complete the oral antibiotics that were previously prescribed. Pt states she has phenergan at home for nausea. I reviewed hospitalist's notes from admission. Pt given antibiotics for infectious gastroenteritis. Will give the IV dose here and discharge home. Pt educated to return for worsening symptoms. . 02/07 06:38 Order name: CBC with Diff; Complete Time: 07:08 kb 02/07 06:38 Order name: CMP; Complete Time: 07:31 kb 02/07 06:38 Order name: Lipase; Complete Time: 07:31 kb 02/07 06:38 Order name: IV Saline Lock; Complete Time: 06:50 kb 02/07 06:38 Order name: Labs collected and sent; Complete Time: 06:50 kb 02/07 06:38 Order name: Urine Dipstick-Ancillary (obtain specimen) 02/07 06:38 Order name: Urine Test (obtain specimen) 02/07 07:34 Order name: PO challenge kb Administered Medications: 06:50 Drug: NS 0.9% 1000 ml Route: IV; Rate: 1 bolus; Site: right forearm; st1 07:48 Follow up: IV Status: Completed infusion mckeon 06:50 Drug: Phenergan (promethazine) 12.5 mg Route: IVP; Site: right forearm; st1 07:47 Follow up: Response: No adverse reaction mckeon 07:48 Drug: Flagyl (metroNIDAZOLE) 500 mg Volume: 100 ml; Route: IVPB; Rate: 200 ml/hr; mckeon Infused Over: 30 mins; Site: right antecubital; 08:28 Follow up: IV Status: Completed infusion mckeon 08:27 Drug: Cipro (ciprofloxacin) 400 mg Volume: 200 ml; Route: IVPB; Infused Over: 60 mins; mckeon Site: right antecubital; 09:49 Not Given (Patient Refused): Phenergan (promethazine) 12.5 mg IVP once mckeon Disposition: 02/08 09:36 Co-signature as Attending Physician, Dinesh Calvin MD I agree with the assessment and kdr plan of care. Disposition Summary: 02/07/22 08:43 Discharge Ordered Location: Home kb Condition: Stable kb Diagnosis - Nausea with vomiting, unspecified kb Followup: kb - With: Emergency Department - When: As needed - Reason: Worsening of condition Followup: kb - With: Private Physician - When: 2 - 3 days - Reason: Recheck today's complaints, Continuance of care, Re-evaluation by your physician Discharge Instructions: - Discharge Summary Sheet kb - Nausea and Vomiting, Adult, [id number] kb Forms: - Medication Reconciliation Form kb - Thank You Letter kb - Antibiotic Education kb - Prescription Opioid Use kb Signatures: Dispatcher [employer] EDGlory Carson, VIDEO ENGINEER-C VIDEO ENGINEER-Dinesh Kramer MD MD kdr Ledbetter, Alexis al4 Mónica-Carmen Sims RN RN mckeon Nicole Casillas RN RN st1
[2022-02-07 10:28] VITALS: TEMP 97.5
[2022-02-07 10:29] VITALS: BP 120/77; O2SAT 98
== END 2022-02-07 10:21 | disposition home or self-care (01) ==
LOC: ER 06:16
DX: R11.2 Nausea with vomiting, unspecified (principal)
CPT/HCPCS: 36415; 80053; 83690; 85025; 99284; J0744; J2550; J7030

== ENCOUNTER 2023-01-21 06:22 | Day surgery (SDC) | payer BC, SELFPAY ==
--- NOTE | 2023-01-18 09:04 | RAD REPORT ---
EXAM DESCRIPTION: RAD - Chest Pa And Lat (2 Views) - 01/18/2023 8:57 am CLINICAL HISTORY: pre op pending bunionectomy COMPARISON: <Comparisons> FINDINGS: Lines: None. Lungs: No evidence of edema or pneumonia. Pleural: No significant pleural effusions or pneumothorax. Cardiac: The heart size is within normal limits. Mediastinum: Within normal limits. Bones: No acute fractures. Other: None IMPRESSION: No acute cardiopulmonary disease.
[2023-01-18 10:19] LABS: Absolute Lymphocytes (CBC) 1.4 K/uL (0.7-4.9); Hematocrit 37.3 % (36.0-45.0); MCV 98.6 fL (80-100); MPV 8.4 fL (7.6-11.3); RBC Red Blood Cell Count 3.78 M/uL (3.86-4.86)
[2023-01-18 10:27] LABS: Specific Gravity 1.018 (1.005-1.030); Urine Bacteria <20 /HPF (<20); Urine Bilirubin NEGATIVE (Negative); Urine Blood Negative (Negative); Urine Clarity Turbid (Clear); Urine Color Yellow (Yellow); Urine Glucose NEGATIVE (Negative); Urine Mucus Slight /HPF (None Seen); Urine Protein TRACE (Negative); Urine Urobilinogen Normal (Normal); Urine WBC Clump Rare /HPF (None Seen)
[2023-01-18 10:31] LABS: Potassium 3.9 mmol/L (3.5-5.1)
--- NOTE | 2023-01-18 18:39 | EKG ---
Test Date: 2023-01-18 Test Time: 08:40:58 Rn Production: AGUS MEASUREMENT RESULTS: Intervals: Rate: 61 VT: 156 QRSD: 78 QT: 418 QTc: 420 Hammond: P: 56 VT: 156 QRS: 89 T: 72 INTERPRETIVE STATEMENTS: Normal sinus rhythm Normal ECG No previous ECG available for comparison Electronically Signed On 01-18-23 18:37:04 REMOTE RUBY ON RAILS DEVELOPER by Franklin Del Cid
--- NOTE | 2023-01-20 17:08 | PREOPHP ---
Date of Admission: 01/21/2023 History Of Present Illness: This patient presented to my office with a chief complaint of a painful big toe joint present on the left foot for a number of months, throbbing in nature, moderate in sever ity, worse with activity, relieved by rest. Patient has modified her shoe gear, taking anti-inflamma tories all to no avail. Has pain with and without shoe gear and requests surgical evaluation. Past Medical History: Unremarkable. Review of Systems: Unremarkable. Medication List: She is on no medications. Allergies: NKDA. Social History: Patient does admit to vaping periodically, not everyday and occasional beer drinking . No IV drug use. Physical Examination: Vital Signs: The patient's weight 164 pounds, height 5 feet 3 inches. General Appearance: The patient is healthy, well developed, well nourished, well oriented x3. Vascular: Evaluation reveals dorsalis pedis and posterior tibial pulses to be 4/4 bilaterally. Capi llary refill time is less than 3 seconds to all toes. Temperature gradient is within normal limits w ith no claudication or complaint of varicosities. No signs of DVT noted bilaterally. Musculoskeletal: Evaluation reveals a semi flexible cavus foot type bilaterally. Subtalar joint jessi ws increased varus bilaterally. There is normal position of the forefoot, right supinatus to the for efoot, left. There is a medial eminence of the first metatarsal head with range of motion is 70 degr ees left, 80 degrees right. Hallux valgus is noted on the left foot. Equinus is noted to be -5 degr ees bilaterally per goniometer measurement. Lesser digits are within normal alignment. Muscle knee and ankle assessment is all within normal limits. No pain on palpation of the plantar aponeurosis. No soft tissue masses notated bilaterally. Stance reveals increased subtalar joint pronation, left g reater than right. Skin evaluation reveals no rash, ulcer, tumor, or contracture bilaterally. Neuro logic: Evaluation reveals deep tendon reflexes for the patellar and Achilles to be 5/5 bilaterally. Vibratory and sharp dull sensation are within normal limits. X-ray evaluation of the left foot reve als a lateral deviation of the hallux and sesamoids with increase in the intermetatarsal angle. Inte rmetatarsal angle was noted to be 13 degrees. Hallux abductus angle is noted to be 25 degrees. Diagnoses: Hallux valgus, left foot, pain in the left foot, and congenital metatarsus primus varus, left foot. The care plan due to the deformity noted on x-ray, a bunionectomy with first metatarsal h ead osteotomy and fixation is recommended for the left foot. The patient is told to be in a postop s hoe for at least 4 weeks with guarded ambulation. The patient has been made aware of COVID-19 risk a nd recommended to follow CDC guidelines to prevent infection postoperatively, which may increase the risk of blood clots and complicate tissue healing. The patient declined cold therapy unit. A postop shoe has been sized to the patient as well as ACL type to keep the bandages dry postoperatively. Th patient was also educated on nicotine usage with vaping and strongly advised to quit during postop period due to increased risk of poor bone healing and DVTs. The patient requests surgical management due to lack of response to conservative care. Surgical correction is desired and lab workup and aleksey arances have been performed. The patient's CBC is within normal limits. However, there is a mild ba cterial UTI present. The patient has been given her lab work and recommended to follow up with her [facility] care or urgent care clinic for the treatment of that condition. The patient is scheduled for surgery at [facility] on December 24. Medical H and P will be completed by Anesthesia . EDILSON/JO ANN Voice ID: [id number]
[2023-01-21] MEDS ORDERED: CEFAZOLIN SODIUM 1 GM/VIAL ONE (06:55)
[2023-01-21] MEDS ORDERED: FENTANYL CITR 100 MCG/2 ML ONE (07:10)
[2023-01-21] MEDS: Ringers Lactate 1,000 ML IV ONE ×2 (07:10→07:27)
[2023-01-21] MEDS ORDERED: propofoL 200 MG/20 ML VIAL IV ONE (07:10)
[2023-01-21] MEDS ORDERED: MIDAZOLAM HCL 2 MG/2 ML INJ ONE (07:11)
[2023-01-21] MEDS ORDERED: LIDOCAINE 2% MPF 5 ML VIAL ONE (07:11)
[2023-01-21] MEDS ORDERED: LIDOCAINE 1% MPF 30 ML VIAL ONE (07:13)
[2023-01-21] MEDS ORDERED: BUPIVACAINE 0.5% PF 10 ML VIAL ONE (07:13)
[2023-01-21] MEDS ORDERED: Mastisol Adhesive Liq ONE (07:14)
[2023-01-21] MEDS ORDERED: ONDANSETRON 4 MG/2 ML VIAL ONE (07:15)
[2023-01-21] MEDS ORDERED: dexAMETHasone 10 MG/ML VIAL ONE (07:54)
[2023-01-21] MEDS ORDERED: KETOROLAC 30 MG/ML INJ ONE (08:41)
[2023-01-21] MEDS ORDERED: MEPERIDINE HCL 25 MG/ML SYR ONE (09:11)
[2023-01-21] MEDS ORDERED: HYDROMORPHONE HCL 1 MG/ML INJ ONE (09:24)
[2023-01-21 09:33] VITALS: O2SAT 96
[2023-01-21 09:47] LABS: Urine Specific Gravity/Preg >1.030 (1.005-1.030)
[2023-01-21] MEDS ORDERED: HYDROCODONE/APAP 7.5/325 MG TAB ONE (10:19)
--- NOTE | 2023-01-21 10:24 | RAD REPORT ---
EXAM DESCRIPTION: RAD - Foot Left 2 View - 01/21/2023 9:19 am CLINICAL HISTORY: BUNIONECTOMY IN OR COMPARISON: Foot Left 3 View dated 02/05/2013 FINDINGS/IMPRESSION: Two intraoperative fluoroscopic images were submitted showing bunionectomy and screw placement of the first metatarsal. Fluoro time: Time 0 minutes Cumulative dose: 0.0194
[2023-01-21 10:28] VITALS: BP 114/77; TEMP 97.7
--- NOTE | 2023-01-21 15:02 | DS ---
Date of Discharge: 01/21/2023 Date Of Surgery: 01/21/2023. Preoperative Diagnosis: Hallux valgus, left foot. Postoperative Diagnosis: Hallux valgus, left foot. Procedure: Bunionectomy with first metatarsal head osteotomy and screw fixation, left foot. The patient tolerated the procedure and anesthesia well. She was injected with 9 cc of 0.5% Marcaine plain postoperatively before bandaging it should be noted. The patient will be seen in my office fo r postoperative care on 01/28/2023 at 10:30. The patient's postop instructions in the written form as well as emergency phone number, postop shoe was dispensed along with gait instructions, a propulsive and a seal type. EDILSON/JO ANN Voice ID: [id number] Report ID: [id number]
--- NOTE | 2023-01-21 15:08 | OP ---
Date of Procedure: 01/21/2023 Surgeon: Tanmay Shipley DPM Preoperative Diagnosis: Hallux valgus deformity, left foot. Postoperative Diagnosis: Hallux valgus deformity, left foot. Procedure: Bunionectomy with first metatarsal head osteotomy with screw fixation, left foot. Anesthesia: General. Description Of Procedure: The patient was brought into the operating room, placed on the operating t able in supine position. General anesthesia was induced. The patient was prepped and draped in usua l sterile manner, and the left leg was elevated to 60 degrees. Esmarch bandage was applied. Pneumat ic ankle tourniquet was elevated to 250 mmHg and the Esmarch was removed. Attention was then directe d to the first MPJ of the left foot where a 5 cm dorsal linear incision was made overlying the first MPJ. The incision was deepened via sharp and blunt dissection with a 15 blade down to the level of t he capsule. All neurologic structures were avoided. All bleeders were clamped and bovied. An inver mekhi L incision was made in the capsule of the first MPJ and medial eminence was brought into view and resected utilizing an oscillating saw. The cartilage was inspected and found to be in good conditio n. The first interspace was then approached and a lateral capsulotomy, abductor tenotomy and EHB ten otomy was performed. The foot was then repositioned with the knee bent and an osteotomy was created in the head of the first metatarsal with the apex distal and the arms proximal. Utilizing an oscilla ting saw, cut was made from medial to lateral. The capital fragment was then shifted laterally and i mpacted medially upon the shaft of the first metatarsal. Remaining eminence was removed utilizing th e oscillating saw. Utilizing an 18 mm IBS into bone cannulated screw, the K-wire was drilled through the capital fragment into the shaft fixating the head. The area was then countersunk, measured, and an 18 mm screw was then placed over the wire after drilling and screwed into the tunnel made. Capit al fragment was seen to impact and compress onto the shaft of the first metatarsal in excellent posit ion. All rough edges were smoothed utilizing a rasp. There was flushed copious amounts of sterile s tara. Medial capsulorrhaphy was then performed with the toe held in a corrected position. The caps ular tissue was then sutured utilizing 2-0 Vicryl suture. It should be noted there was a lot of flex ibility in the capsular tissue. Additional capsular tissue was taken through a capsulorrhaphy and th e sutures were put in with 2-0 Vicryl, 2 coby sutures were put on the bottom of the medial arm. Ex cellent range of motion was seen to 80 degrees and rectus alignment. The area was flushed with copio us amounts of sterile saline. Skin was closed utilizing 4-0 Prolene, horizontal mattress suture. Th e area was dressed with Adaptic, dry sterile gauze, dry sterile Hemanth, Kerlix, and an Will bandage. P neumatic ankle tourniquet was released. Capillary return was seen to be instantaneous to all digits. The patient was sent to recovery in satisfactory condition. CHIO Voice ID: [id number] Report ID: [id number]
== END 2023-01-21 10:38 | disposition home or self-care (01) ==
LOC: OR 06:22
PROVIDERS: ATTEND Podiatrist
PROC: 0QSP04Z Reposition Left Metatarsal with Internal Fixation Device, Open Approach (ICD-10-PCS; principal; 2023-01-21 07:30)
DX: M20.12 Hallux valgus (acquired), left foot (principal)
CPT/HCPCS: 36415; 71046; 80048; 81001; 81025; 85025; 87077; 87086; 87088; 87186; 88300; 93005; J0690; J1100; J1170; J2001; J2175; J2250; J2405; J2704; J3010; J7120